=== PATIENT | female | born 1980 | race Caucasian/White ===

== ENCOUNTER → 2020-10-10 | Outpatient (CLI) | payer OTHER ==
[~2020-10-10] MED LIST: CLARITIN10 M3 PO; CULTURELLE WOM1 EACH PO; FAMOTIDINE40 MG PO; FLONASE 0.05%50 MCG NARES; IBUPROFEN 800800 M1 PO; MAGNESIUM250 M1 PO; MECLIZINE HCL25 M1 PO; VITAMIN A10000 UNI3 PO; VITAMIN C500 M1 PO; VITAMIN D325 MC3 PO; WOMEN'S DAILY1 EAC2 PO
== END ==
LOC: LAB 10:30
PROVIDERS: ATTEND Surgery
DX: Z01.812 Encounter for preprocedural laboratory examination (principal); Z20.828 Contact with and (suspected) exposure to other viral communicable diseases

== ENCOUNTER 2020-10-15 08:29 | Day surgery (SDC) | payer OTHER ==
[~2020-10-15] VITALS: Ht 165.1 cm; Wt 63.5 kg
--- NOTE | ~2020-10-15 | H ---
[facility] [place] [address] HISTORY AND PHYSICAL Name: TYLER HORNE Room #: PRE [facility] M.R.#: [id number] Admission: Attend Phys: Fly Lopez MD Discharge: Date of : 80 Report #: [id number] THIS REPORT FOR: cc: ELIZABETH - Family physician unknown FAM - Family physician unknown Fly Lopez MD ~ DATE OF SERVICE: 10/15/2020 Patient of ____ DATE OF ADMISSION AND SURGERY: 10/15/2020 CHIEF COMPLAINT: Lump in her abdomen. HISTORY OF PRESENT ILLNESS: The patient is a 40-year-old white female who about a month and a half ago noticed a lump in her abdomen, just above the umbilicus and slightly to the right of the midline. She denied any pain. No recent changes in bowel or bladder habits. She had an umbilical hernia repair with mesh by Dr. Dangelo Mancilla in 2016. She had a laparoscopic appendectomy in 12/2019. She was seen in urgent care recently and they recommended followup with her primary care physician, ____, who then recommended a surgical consultation. She has had an abdominal ultrasound which confirmed the presence of fat and bowel containing hernia defect 1 cm cephalad to the umbilicus. PAST MEDICAL HISTORY: Umbilical hernia repair, 11/2016; gastroesophageal reflux disease; , 07/2013; , 12/2014; wisdom teeth extraction; tonsillectomy and adenoidectomy; breast augmentation 07/2016; bunionectomy 06/2020. MEDICATIONS: Multivitamin, famotidine and ibuprofen. FAMILY HISTORY: Noncontributory. SOCIAL HISTORY: The patient is , does not smoke, drinks alcohol occasionally. REVIEW OF SYSTEMS: Pertinent positives as above. Full review of systems as per the electronic medical record as reviewed by myself. PHYSICAL EXAMINATION: GENERAL: This is a well-developed, well-nourished white female, in no acute distress. VITAL SIGNS: Stable. She is afebrile. Height is 5 feet 4 inches, weight is 143 pounds, BMI of 24.6. HEENT: Sclerae are nonicteric. Mucous membranes moist and pink. NECK: There is no adenopathy. [facility] [address] [place] [address] HISTORY AND PHYSICAL Name: TYLER HORNE Room #: PRE [facility] M.R.#: [id number] Admission: Attend Phys: Fly Lopez MD Discharge: Date of : 80 Report #: [id number] LUNGS: Clear to auscultation bilaterally. Normal excursion. CARDIOVASCULAR: Regular rate and rhythm. No murmurs, S3 or S4. Normal PMI. ABDOMEN: Soft, flat, nontender. She is examined in the standing, supine and flexed position. There are healed infraumbilical as well as supraumbilical incision scars. Just superior and right lateral to the supraumbilical incision scar, there is a palpable, partially reducible ventral incisional hernia. No other organomegaly or masses. EXTREMITIES: No clubbing, cyanosis or edema. NEUROLOGIC: Intact with a clear mental status. IMPRESSION: A 40-year-old white female with a supraumbilical ventral incisional hernia. I fully discussed with the patient the diagnosis, prognosis, and treatment options. I have recommended a repair of this hernia with possible mesh. She states she understands and agrees to proposed surgery. PLAN: We will perform a supraumbilical ventral incisional hernia repair with possible mesh under local IV sedation as an outpatient at [facility]. The procedure and its risks, benefits and possible complications including possible need for mesh were fully discussed with the patient. She states she understands and agrees to proposed surgery. By: [id number] Fly Lopez MD /nt
--- NOTE | ~2020-10-15 | O ---
[facility] [place] [address] OPERATIVE REPORT Name: TYLER HORNE Room #: 150-1 [facility] M.R.#: [id number] Admission: 10/15/20 Attend Phys: Fly Lopez MD Discharge: Date of : 80 Report #: [id number] THIS REPORT FOR: cc: Elizabeth Ye MD, Cora A. MD Franey,Fly Grissom MD ~ DATE OF SERVICE: 10/15/[address] Fly Lopez and Dr. Elizabeth Ye. PREOPERATIVE DIAGNOSIS: Incarcerated ventral incisional hernia. POSTOPERATIVE DIAGNOSIS: Incarcerated ventral incisional hernia. PROCEDURE: Repair of an incarcerated ventral incisional hernia. SURGEON: Fly Lopez M.D. ANESTHESIA: Local IV sedation. DESCRIPTION OF PROCEDURE: The patient was brought to the operating room and placed on operative table in the supine position. Sequential compression devices were in place for DVT prophylaxis. There was no indication for preoperative antibiotics. The patient underwent IV sedation. The abdomen was then prepped and draped in a sterile fashion. Skin and subcutaneous tissue were then infiltrated with 0.5% Marcaine and 1% Xylocaine with epinephrine. A transverse supraumbilical skin incision was performed through the previous incision scar using a #15 scalpel blade. Hemostasis obtained using electrocautery. Dissection was carried down through the subcutaneous tissue to some incarcerated preperitoneal fat and omentum, which was dissected free and reduced back through the fascial defect. The fascial defect was then closed using interrupted [id number] 0 Prolene sutures. Deep and superficial subcutaneous tissue then reapproximated using simple interrupted 2-0 chromic sutures and the skin then closed with a running 4-0 subcuticular Vicryl stitch. The wound was then dressed with Dermabond, Telfa, 4 x 4 gauze, sponge and tape. The patient was then awakened from the IV sedation, taken to the recovery room in good condition. Estimated blood loss was approximately 5 mL and the patient tolerated procedure well. All sponge, lap and instrument counts correct x 2. By: [id number] Fly Lopez MD /nt
[2020-10-15 09:39] VITALS: BP 117/70
[2020-10-15] MEDS ORDERED: NORCO 5-325 TA1 EAC2 PO (11:04)
[2020-10-15 12:03] VITALS: BP 117/70
== END 2020-10-15 12:50 | disposition home or self-care (01) ==
LOC: OR → TBA 08:29 → OR 08:29 → TBA 08:31 → OR 09:25
PROVIDERS: ATTEND Surgery
DX: K43.0 Incisional hernia with obstruction, without gangrene (principal); K21.9 Gastro-esophageal reflux disease without esophagitis; Z98.890 Other specified postprocedural states; Z79.899 Other long term (current) drug therapy; Z90.49 Acquired absence of other specified parts of digestive tract
CPT/HCPCS: 50010; 50101; 50386; 50417; 54118; 56524; 56526; 62110; 62850; 70005